=== PATIENT | male | born 1955 | race Caucasian/White ===

== ENCOUNTER 2016-08-30 04:15 | Emergency (ER) | payer MEDICARE, OTHER ==
[~2016-08-30] VITALS: Ht 167.6 cm; Wt 75.0 kg
[2016-08-30] MEDS ORDERED: ONDANSETRON HCL 4MG/2ML VIAL IV STA (05:08)
[2016-08-30] MEDS ORDERED: MORPHINE SULFATE 4 MG/ML CPJ (NOT FOR IM USE) IV STA (05:08)
[2016-08-30 05:49] LABS: BASOPHILS % 0.2 % (0.0-2.0); EOSINOPHILS % 0.2 % (0.0-5.0); HEMATOCRIT. 40.7 % (42.0-52.0); HEMOGLOBIN. 14.3 g/dL (14.0-18.0); LYMPHOCYTES % 12.3 % (20.0-50.0); MEAN CORPUSCULAR HEMOGLOBIN 32.4 pg (28.0-32.0); MEAN CORPUSCULAR VOLUME 91.9 fL (80.0-94.0); MEAN PLATELET VOLUME 8.6 fl (7.4-10.4); MONOCYTES % 3.3 % (2.0-8.0); PLATELET 169 x1000/uL (130-400); RED BLOOD CELL COUNT 4.42 mill/uL (4.7-6.1); RED CELL DISTRIBUTION WIDTH 13.3 % (11.6-14.6)
[2016-08-30 06:00] LABS: CHLORIDE 104 mEq/L (98-107)
[2016-08-30 06:09] LABS: CARBON DIOXIDE 26 mEq/L (21-32)
[2016-08-30] MEDS ORDERED: LEVETIRACETAM 500MG PREMIX 100 ML IV ONE (11:15)
[2016-08-30] MEDS ORDERED: GADOBENATE DIMEGLUMINE 529 MG/ML 10ML IV ONE (14:21)
[2016-08-30] MEDS ORDERED: DEXAMETHASONE 4MG/ML 1ML VIAL IV ONE (15:15)
[2016-08-30 22:19] VITALS: BP 138/62
== END 2016-08-30 22:24 | disposition short-term general hospital (02) ==
LOC: ER 04:15
DX: G93.9 Disorder of brain, unspecified (principal)
CPT/HCPCS: 36415; 70450; 70553; 80053; 85025; 96365; 96375; 99291; A9577; J1100; J1953; J2270; J2405; Z7610